=== PATIENT | female | born 1970 | race Caucasian/White ===

== ENCOUNTER 2018-07-30 19:24 | Observation (INO) ==
[2018-07-30] MEDS ORDERED: Ondansetron 4 MG/2 ML VIAL IVP ONE (19:48)
[2018-07-30] MEDS ORDERED: 0.9 % Sodium Chloride 1,000 ML IVC ONE (19:48)
[2018-07-30] MEDS ORDERED: Isovue-370 500 ML BOTTLE IVP ONE (19:48)
[2018-07-30] MEDS ORDERED: methylPREDNISolone 125 MG/2 ML VIAL IVP ONE (19:49)
--- NOTE | 2018-07-30 20:10 | Emergency Department Note ---
Disposition Clinical Impression: Colitis Disposition: Still a Patient Condition: Undetermined Forms: ED Satisfaction Letter, Work/School Release Time of Disposition: 20:36 Abdominal Pain HPI - General Chief Complaint: ED Abdominal Pain Stated Complaint: abd pain GI bleed Time Seen by Provider: 07/30/18 19:40 Source: patient, family Nursing Notes Reviewed: Yes Vital Signs Reviewed: Yes - History of Present Illness HPI Narrative: 48-year-old female presents from home for evaluation of bilateral lower abdomi nal cramping, loose stools, troy red blood in loose stools. History of ulcerative colitis. Symptoms today are identical to her previous flares of ulcerative colitis. This episode began approximately 4 weeks ago. She currently does not have a provider managing her ulcerative colitis and currently takes no daily medications. She was previously prescribed mesalamine however, the cost was prohibitive and she has not filled it. She presented to the emergency department 4 days ago for same symptoms and was discharged home with prescription for oral prednisone. Patient did not take the oral prednisone as it causes psychological reaction of homicidal ideation. Patient was tolerating her pain until this afternoon when he became abruptly worse. She is fine with IV steroids. Patient last colonoscopy was in December performed by Dr. Abbott. ROS: Positive: As above Negative: Fever, chills, nausea, vomiting, chest pains, palpitations, back pain, dysuria Pain Scale: 8 - Related Data Home Medications Medication Instructions Recorded Confirmed Dextroamphetamine/Amphetamine PO DAILY 05/29/17 [Adderall 20 mg Tablet] Bupropion HCl ER 01/30/18 Klonopin 01/30/18 Previous Rx's Medication Instructions Recorded Omeprazole [PriLOSEC] 40 mg PO DAILY #10 cap 12/20/17 Ondansetron ODT [Zofran ODT] 4 mg SL Q8HR PRN #12 tab.rapdis 07/26/18 PredniSONE [Deltasone] 20 mg PO DAILY 10 Days #8 tablet 07/26/18 Allergies Allergy/AdvReac Type Severity Reaction Status Date / Time doxycycline AdvReac Vomiting Verified 07/30/18 19:28 eszopiclone [From Lunesta] AdvReac Nausea Verified 07/30/18 19:28 morphine AdvReac Hives Verified 07/30/18 19:28 Penicillins [PCN] AdvReac Hives Verified 03/11/19 19:28 All systems ED: reviewed and negative except as stated. 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 Bilateral breath sounds are clear without wheezing, crackles, or rhonchi. Cardiovascular: Regular rate and rhythm. No clicks, rubs, gallops, or murmors. Normal heart sounds. Abdomen: Bowel sounds present normoactive. Abdomen is soft, nondistended. Bilateral lower abdominal tenderness. No guarding or rebound. Musculoskeletal: Spontaneously moving all extremities. Skin: warm, dry, intact. Neuro: GCS 15. No focal neurologic deficits observed. Psych: Patient's affect is appropriate for situation. - General Limitations: no limitations General appearance: alert, in no apparent distress Course Course Narrative: Patient signs and symptoms clinically consistent with Crohn's. Given she states this is identical to previous Crohn's flare, will begin empiric management as well as evaluation to ensure alternate pathologies are unlikely. EKG dated 07/30/2018 at 20:07 interpreted as sinus rhythm with rate of 84. Heroin 37, QRS 87, QTC 467. Normal axis. Nonspecific ST-T changes. Compared to previous EKG dated 11/29/2010 show no acute ischemic changes or comparison. Patient has been signed out to Dr. Martinez and Dr. Alvarado. Pending: All laboratory work, CT abdomen pelvis, reassessment after supportive management Recommended disposition: If uncomplicated ulcerative colitis, discharge home with close follow-up. Else, admit. Barriers to disposition: All pending studies as above. Vital Signs Temperature 97.9 F 07/30/18 19:28 Pulse Rate 92 07/30/18 19:28 Respiratory Rate 18 07/30/18 19:28 Blood Pressure 140/88 07/30/18 19:28 O2 Sat by Pulse Oximetry 99 07/30/18 19:28 Temperature 97.9 F 07/30/18 19:28 Pulse Rate 86 07/30/18 20:29 Respiratory Rate 16 07/30/18 20:29 Blood Pressure 128/88 07/30/18 20:29 O2 Sat by Pulse Oximetry 100 07/30/18 20:29 Oxygen Delivery Oxygen Delivery Room Air Abdominal Pain - Lab Data Result diagrams: 07/30/18 20:08 Lab Results 07/30/18 07/30/18 07/30/18 Range/Units 20:02 20:02 20:08 WBC 14.8 H D (4.3-11.1) K/mcL RBC 5.06 H (3.82-4.97) M/mcL Hgb 13.3 (11.5-15.4) g/dL Hct 41.6 (35.3-44.9) % MCV 82.2 L (83.0-100.0) fL MCH 26.3 L (28.0-33.3) pg MCHC 32.0 (31.6-35.5) g/dL RDW 14.1 (11.5-14.5) % Plt Count 317 (140-400) K/mcL MPV 9.1 L (9.4-12.4) fL Immature Gran % 0.2 (0-4) % Seg Neutrophils % 73.7 % Lymphocytes % 15.9 % Monocytes % 8.0 % Eosinophils % 1.6 % Basophils % 0.6 % Neutrophils # 10.9 H (1.6-8.9) K/mcL Lymphocytes # 2.4 (0.6-4.6) K/mcL Monocytes # 1.2 (0.0-1.3) K/mcL Eosinophils # 0.2 (0.0-0.6) K/mcL Basophils # 0.1 (0.0-0.2) K/mcL Urine Color Yellow (Yellow) Urine Clarity Clear (Clear) Urine pH 5.5 (5.0-8.0) pH Units Ur Specific [place] 1.023 (1.010-1.025) Urine Protein Negative (Neg-Trace) mg/dL Urine Glucose (UA) Normal (Normal) mg/dL Urine Ketones Negative (Negative) mg/dL Urine Blood Negative (Negative) Urine Nitrite Negative (Negative) Urine Bilirubin Negative (Negative) Urine Urobilinogen Normal (Normal) mg/dL Ur Leukocyte Esterase Negative (Negative) Ur Culture Indicated? NO (NO) Ur Drug Screen Interp See Below
[2018-07-30 20:26] LABS: Bilirubin,Urine Negative (Negative); Blood,Urine Negative (Negative); Clarity,Urine Clear (Clear); Color,Urine Yellow (Yellow); Glucose,Urine (UA) Normal (Normal); Ketones,Urine Negative (Negative); Leukocyte Esterase,Urine Negative (Negative); Nitrite,Urine Negative (Negative); PH,Urine 5.5 pH Units (5.0-8.0); Protein,Urine Negative (Neg-Trace); Specific Gravity,Urine 1.023 (1.010-1.025); Urobilinogen,Urine Normal (Normal)
[2018-07-30 20:28] LABS: Basophils # 0.1 K/mcL (0.0-0.2); Basophils % 0.6 %; Eosinophils # 0.2 K/mcL (0.0-0.6); Eosinophils % 1.6 %; Hematocrit 41.6 % (35.3-44.9); Hemoglobin 13.3 g/dL (11.5-15.4); Immature Granulocytes % 0.2 % (0-4); Lymphocytes # 2.4 K/mcL (0.6-4.6); Lymphocytes % 15.9 %; Mean Corpuscular Hemoglobin 26.3 pg (28.0-33.3); Mean Corpuscular Volume 82.2 fL (83.0-100.0); Mean Platelet Volume 9.1 fL (9.4-12.4); Monocytes # 1.2 K/mcL (0.0-1.3); Neutrophils # 10.9 K/mcL (1.6-8.9); Platelet Count 317 K/mcL (140-400); Red Blood Count 5.06 M/mcL (3.82-4.97); Red Cell Distribution Width 14.1 % (11.5-14.5); Segmented Neutrophils % 73.7 %
--- NOTE | 2018-07-30 20:29 | Emergency Department Note ---
Disposition Clinical Impression: Colitis Disposition: Still a Patient Condition: Good Forms: ED Satisfaction Letter, Work/School Release General Adult HPI - General Chief complaint: ED Abdominal Pain Stated complaint: abd pain GI bleed Time Seen by Provider: 07/30/18 19:40 Source: patient, family Limitations: no limitations - History of Present Illness Pain Scale: 8 - Related Data Home Medications Medication Instructions Recorded Confirmed Dextroamphetamine/Amphetamine PO DAILY 05/29/17 [Adderall 20 mg Tablet] Bupropion HCl ER 01/30/18 Klonopin 01/30/18 Previous Rx's Medication Instructions Recorded Omeprazole [PriLOSEC] 40 mg PO DAILY #10 cap 12/20/17 Ondansetron ODT [Zofran ODT] 4 mg SL Q8HR PRN #12 tab.rapdis 07/26/18 PredniSONE [Deltasone] 20 mg PO DAILY 10 Days #8 tablet 07/26/18 Allergies Allergy/AdvReac Type Severity Reaction Status Date / Time doxycycline AdvReac Vomiting Verified 07/30/18 19:28 eszopiclone [From Lunesta] AdvReac Nausea Verified 07/30/18 19:28 morphine AdvReac Hives Verified 07/30/18 19:28 Penicillins [PCN] AdvReac Hives Verified 07/30/18 19:28 Past Medical History - Past Medical History Medical history: Reports: no medical history, other Surgical history: Reports: , orthopedic, other Psychiatric history: Reports: anxiety, ADHD, depression 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 - Social History Smoking Status: Never smoker Smokeless Tobacco Status: No Alcohol use: Reports: none Drug use: Reports: none Physical Exam - General Limitations: no limitations General appearance: alert, in no apparent distress Course Vital Signs Temperature 97.9 F 07/30/18 19:28 Pulse Rate 92 07/30/18 19:28 Respiratory Rate 18 07/30/18 19:28 Blood Pressure 140/88 07/30/18 19:28 O2 Sat by Pulse Oximetry 99 07/30/18 19:28 Temperature 97.9 F 07/30/18 19:28 Pulse Rate 92 07/30/18 19:28 Respiratory Rate 18 07/30/18 19:28 Blood Pressure 140/88 07/30/18 19:28 O2 Sat by Pulse Oximetry 99 07/30/18 19:28 Oxygen Delivery Oxygen Delivery Room Air Medical Decision Making - Lab Data Lab Results 07/30/18 Range/Units 20:02 Ur Drug Screen Interp See Below Attestation Statement - Attestation Attestation: I examined this patient and my medical decision-making was reviewed with the Resident Physician. I agree with the documented findings, disposition and treatment plan as described except to the extent set forth below. 48 year old female presents to the Ed with complaints of colitis flare up from UC and was seen here a few days ago and sent home with prednisone after GI conusult. Yasir has missed her last 3 appointments and GI has discharged her from their practice. Yasir states that the sean is lower abodminal with rectal bleeding which is ismliar to her flare ups in the past. No peritoneal signs on exam. Patient will have lab work and ABCT for evaluation. I will sign patiet out Dr. Martinez who will followup on labs and ABCT and dispotiion based on such. Dr. Martinez has accepted the sign out.
--- NOTE | 2018-07-30 20:33 | Emergency Department Note ---
Disposition Clinical Impression: Colitis, Proctocolitis, Ulcerative colitis Disposition: Admitted As Inpatient Condition: Good Forms: ED Satisfaction Letter, Work/School Release General Adult HPI - General Chief complaint: ED Abdominal Pain Stated complaint: abd pain GI bleed Time Seen by Provider: 07/30/18 19:40 Source: patient, family Limitations: no limitations - History of Present Illness Pain Scale: 8 - Related Data Home Medications Medication Instructions Recorded Confirmed Dextroamphetamine/Amphetamine PO DAILY 05/29/17 [Adderall 20 mg Tablet] Bupropion HCl ER 01/30/18 Klonopin 01/30/18 Previous Rx's Medication Instructions Recorded Omeprazole [PriLOSEC] 40 mg PO DAILY #10 cap 12/20/17 Ondansetron ODT [Zofran ODT] 4 mg SL Q8HR PRN #12 tab.rapdis 07/26/18 PredniSONE [Deltasone] 20 mg PO DAILY 10 Days #8 tablet 07/26/18 Allergies Allergy/AdvReac Type Severity Reaction Status Date / Time doxycycline AdvReac Vomiting Verified 07/30/18 19:28 eszopiclone [From Lunesta] AdvReac Nausea Verified 07/30/18 19:28 morphine AdvReac Hives Verified 07/30/18 19:28 Penicillins [PCN] AdvReac Hives Verified 07/30/18 19:28 Past Medical History - Past Medical History Medical history: Reports: no medical history, other Surgical history: Reports: , orthopedic, other Psychiatric history: Reports: anxiety, ADHD, depression 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 - Social History Smoking Status: Never smoker Smokeless Tobacco Status: No Alcohol use: Reports: none Drug use: Reports: none Physical Exam - General Limitations: no limitations General appearance: alert, in no apparent distress Course Vital Signs Temperature 97.9 F 07/30/18 19:28 Pulse Rate 92 07/30/18 19:28 Respiratory Rate 18 07/30/18 19:28 Blood Pressure 140/88 07/30/18 19:28 O2 Sat by Pulse Oximetry 99 07/30/18 19:28 Temperature 97.9 F 07/30/18 19:28 Pulse Rate 93 07/30/18 21:35 Respiratory Rate 18 07/30/18 21:35 Blood Pressure 123/85 07/30/18 21:35 O2 Sat by Pulse Oximetry 99 07/30/18 21:35 Oxygen Delivery Oxygen Delivery Room Air Medical Decision Making - MDM Narrative Medical decision making narrative: Patient was signed out to me by Dr. Ayde Gastelum CT shows evidence of colitis although it is a proctocolitis. ACute on chronic per radiology admit iv levaquin and flagyl ordered - Medical Records Medical records reviewed: Yes I reviewed the patient's medical records. - Lab Data Lab results reviewed: Yes I reviewed the patient's lab results. Result diagrams: 07/30/18 20:08 07/30/18 20:08 Lab Results 07/30/18 07/30/18 07/30/18 Range/Units 20:02 20:02 20:08 WBC 14.8 H D (4.3-11.1) K/mcL RBC 5.06 H (3.82-4.97) M/mcL Hgb 13.3 (11.5-15.4) g/dL Hct 41.6 (35.3-44.9) % MCV 82.2 L (83.0-100.0) fL MCH 26.3 L (28.0-33.3) pg MCHC 32.0 (31.6-35.5) g/dL RDW 14.1 (11.5-14.5) % Plt Count 317 (140-400) K/mcL MPV 9.1 L (9.4-12.4) fL Immature Gran % 0.2 (0-4) % Seg Neutrophils % 73.7 % Lymphocytes % 15.9 % Monocytes % 8.0 % Eosinophils % 1.6 % Basophils % 0.6 % Neutrophils # 10.9 H (1.6-8.9) K/mcL Lymphocytes # 2.4 (0.6-4.6) K/mcL Monocytes # 1.2 (0.0-1.3) K/mcL Eosinophils # 0.2 (0.0-0.6) K/mcL Basophils # 0.1 (0.0-0.2) K/mcL PT (9.4-12.1) Seconds INR APTT (26.0-36.0) Seconds Sodium (136-145) mEq/L Potassium (3.5-5.1) mEq/L Chloride (98-107) mEq/L Carbon Dioxide (23-29) mEq/L BUN (6-20) mg/dL Creatinine (0.60-1.20) mg/dL Est GFR ( Amer) (> 60) Est GFR (Non-Af Amer) (> 60) BUN/Creatinine Ratio (6-26) Glucose (70-105) mg/dL Calculated Osmolality (280-300) Lactic Acid (0.5-2.2) mmol/L Calcium (8.6-10.3) mg/dL Total Bilirubin (0.3-1.0) mg/dL Direct Bilirubin (0.0-0.2) mg/dL Indirect Bilirubin (0.0-1.2) mg/dL AST (13-39) Units/L ALT (7-52) Units/L Alkaline Phosphatase (34-104) Units/L Troponin I (< 0.04) ng/mL Serum Total Protein (6.4-8.9) g/dL Albumin (3.5-5.7) g/dL Globulin (2.4-3.5) g/dL Albumin/Globulin Ratio (1.1-2.2) Lipase (11-82) Units/L Urine Color Yellow (Yellow) Urine Clarity Clear (Clear) Urine pH 5.5 (5.0-8.0) pH Units Ur Specific [place] 1.023 (1.010-1.025) Urine Protein Negative (Neg-Trace) mg/dL Urine Glucose (UA) Normal (Normal) mg/dL Urine Ketones Negative (Negative) mg/dL Urine Blood Negative (Negative) Urine Nitrite Negative (Negative) Urine Bilirubin Negative (Negative) Urine Urobilinogen Normal (Normal) mg/dL Ur Leukocyte Esterase Negative (Negative) Ur Culture Indicated? NO (NO) Urine Opiates Screen Negative (Lsbugq=733) ng/mL Ur Barbiturates Screen Negative (Yqcbec=653) ng/mL Ur Phencyclidine Scrn Negative (Cutoff=25) ng/mL Ur Amphetamines Screen Positive H (Wrioau=7832) ng/mL U Benzodiazepines Scrn Negative (Mwzosv=622) ng/mL Urine Cocaine Screen Negative (Cutoff= 300) ng/mL U Marijuana (THC) Screen Negative (Cutoff = 50) ng/mL Ur Drug Screen Interp See Below 07/30/18 07/30/18 07/30/18 Range/Units 20:08 20:08 20:08 WBC (4.3-11.1) K/mcL RBC (3.82-4.97) M/mcL Hgb (11.5-15.4) g/dL Hct (35.3-44.9) % MCV (83.0-100.0) fL MCH (28.0-33.3) pg MCHC (31.6-35.5) g/dL RDW (11.5-14.5) % Plt Count (140-400) K/mcL MPV (9.4-12.4) fL Immature Gran % (0-4) % Seg Neutrophils % % Lymphocytes % % Monocytes % % Eosinophils % % Basophils % % Neutrophils # (1.6-8.9) K/mcL Lymphocytes # (0.6-4.6) K/mcL Monocytes # (0.0-1.3) K/mcL Eosinophils # (0.0-0.6) K/mcL Basophils # (0.0-0.2) K/mcL PT 11.4 (9.4-12.1) Seconds INR 1.0 APTT 35.0 (26.0-36.0) Seconds Sodium 137 (136-145) mEq/L Potassium 3.8 (3.5-5.1) mEq/L Chloride 104 (98-107) mEq/L Carbon Dioxide 28 (23-29) mEq/L BUN 13 (6-20) mg/dL Creatinine 0.72 (0.60-1.20) mg/dL Est GFR ( Amer) > 60 (> 60) Est GFR (Non-Af Amer) > 60 (> 60) BUN/Creatinine Ratio 18 (6-26) Glucose 100 (70-105) mg/dL Calculated Osmolality 284 (280-300) Lactic Acid 1.0 (0.5-2.2) mmol/L Calcium 9.4 (8.6-10.3) mg/dL Total Bilirubin 0.4 (0.3-1.0) mg/dL Direct Bilirubin 0.1 (0.0-0.2) mg/dL Indirect Bilirubin 0.3 (0.0-1.2) mg/dL AST 14 (13-39) Units/L ALT 10 (7-52) Units/L Alkaline Phosphatase 71 (34-104) Units/L Troponin I < 0.03 (< 0.04) ng/mL Serum Total Protein 7.1 (6.4-8.9) g/dL Albumin 4.1 (3.5-5.7) g/dL Globulin 3.0 (2.4-3.5) g/dL Albumin/Globulin Ratio 1.4 (1.1-2.2) Lipase 15 (11-82) Units/L Urine Color (Yellow) Urine Clarity (Clear) Urine pH (5.0-8.0) pH Units Ur Specific [place] (1.010-1.025) Urine Protein (Neg-Trace) mg/dL Urine Glucose (UA) (Normal) mg/dL Urine Ketones (Negative) mg/dL Urine Blood (Negative) Urine Nitrite (Negative) Urine Bilirubin (Negative) Urine Urobilinogen (Normal) mg/dL Ur Leukocyte Esterase (Negative) Ur Culture Indicated? (NO) Urine Opiates Screen (Ohfasx=736) ng/mL Ur Barbiturates Screen (Kbzmpp=258) ng/mL Ur Phencyclidine Scrn (Cutoff=25) ng/mL Ur Amphetamines Screen (Gweszj=6376) ng/mL U Benzodiazepines Scrn (Wrrleo=905) ng/mL Urine Cocaine Screen (Cutoff= 300) ng/mL U Marijuana (THC) Screen (Cutoff = 50) ng/mL Ur Drug Screen Interp - Radiology Data Radiology results reviewed: Yes I reviewed the patient's radiology results. Attestation Statement - Attestation Attestation: I examined this patient and my medical decision-making was reviewed with the Resident Physician. I agree with the documented findings, disposition and treatment plan as described except to the extent set forth below.
[2018-07-30 20:35] LABS: Prothrombin Time 11.4 Seconds (9.4-12.1)
[2018-07-30 20:37] LABS: Amphetamine Screen,Urine Positive ng/mL (Cutoff=1000); Barbiturate Screen,Urine Negative ng/mL (Cutoff=200); Benzodiazepines Screen,Urine Negative ng/mL (Cutoff=200); Cannabinoid Screen,Urine Negative ng/mL (Cutoff = 50); Cocaine Screen,Urine Negative ng/mL (Cutoff= 300); Opiate Screen,Urine Negative ng/mL (Cutoff=300); Phencyclidine Screen,Urine Negative ng/mL (Cutoff=25)
[2018-07-30 20:50] LABS: Alanine Aminotransferase 10 Units/L (7-52); Albumin 4.1 g/dL (3.5-5.7); Albumin/Globulin Ratio 1.4 (1.1-2.2); Alkaline Phosphatase 71 Units/L (34-104); Aspartate Amino Transferase 14 Units/L (13-39); BUN/Creatinine Ratio 18 (6-26); Bilirubin,Direct 0.1 mg/dL (0.0-0.2); Bilirubin,Indirect 0.3 mg/dL (0.0-1.2); Bilirubin,Total 0.4 mg/dL (0.3-1.0); Blood Urea Nitrogen 13 mg/dL (6-20); Calcium 9.4 mg/dL (8.6-10.3); Carbon Dioxide 28 mEq/L (23-29); Chloride 104 mEq/L (98-107); Glucose 100 mg/dL (70-105); Lipase 15 Units/L (11-82); Osmolality,Calculated 284 (280-300); Potassium 3.8 mEq/L (3.5-5.1); Sodium 137 mEq/L (136-145); Total Protein 7.1 g/dL (6.4-8.9); Troponin I < 0.03 ng/mL (< 0.04); eGFR For Non-African Americans > 60 (> 60)
[2018-07-30] MEDS ORDERED: Levofloxacin 750 MG/150 ML 750 MG/150 ML BAG IVPB ONE (22:31)
[2018-07-30] MEDS ORDERED: MetroNIDAZOLE 500 MG/100 ML 500 MG/100 ML BAG IVPB ONE (22:31)
[2018-07-31] MEDS ORDERED: Ondansetron ODT 4 MG TAB.RAPDIS SL PRN (04:05)
[2018-07-31] MEDS ORDERED: Naloxone 0.4 MG/ML INJ IVP PRN (04:05)
--- NOTE | 2018-07-31 05:13 | Internal Med History&Physical ---
<Michelle Mendez - Last Filed: 07/31/18 05:43> Date of Encounter: 07/31/18 Time of Encounter: 05:08 Internal Medicine - H&P: HPI Chief complaint: Ulcerative colitis flare Admitted From: Home Plans for Post Hospital Care: Home History of present illness: Ms. Alvarez is a 48 year old female presenting with complaint of bilateral lower abdominal cramping, loose stool and bright red blood in stool for the past 4 weeks. She has a past medical history of ulcerative colitis for the past 15 years, anxiety, depression, ADHD for which she is on Adderall. Patient states that she last saw Dr. Abbott in December 2017 for a colonoscopy, since that time she is dismissed 3 further follow-up appointment with GI and was discharged from the practice. She has previously been on mesalamine until the end of April 2018, when the new year began she had a high deductible and has not been able to afford mesalamine since. Patient states that she has between 4 and 15 bowel movements per day and that more often than not she has blood and mucus mixed in with the stool. She states that the abdominal cramping is increasing in severity as well as increased amount of blood in stool for the past 4 weeks, she states that on 07/26/18 she presented to the emergency department and was given a prescription for prednisone for ulcerative colitis flare however she has had behavioral side effects when she takes oral prednisone in the past so she did not fill her prescription. She states that she has decreased by mouth intake during flares, she states that even drinking water or eating hard candies increases the severity of abdominal cramping. She states that she has lost 60 pounds in the past year due to inability to eat when she has abdominal cramping from her ulcerative colitis. She admits to nausea, dizziness, increasing blood in loose stools, and night sweats. She denies any fever, chills, vomiting, vision changes, headache, chest pain, pleuritic chest pain, shortness breath, dysuria, joint pain, weakness, rashes or lesions. Past Med Surg Social Fam HX - Past Medical History Source: patient Medical history: other Additional medical history: ulcerative colitis Psychiatric history: anxiety, ADHD, depression - Past Surgical History Surgical History: , orthopedic, other Additional surgical history: rt acl - Social History Smoking Status: Never smoker Smokeless Tobacco Status: No Alcohol use: none Drug use: none - Family History Mother Age: 71 Living Status: Still Living Hx Family Cardiac Disorders: No Hx Family Respiratory Disorders: Yes (COPD) Hx Family Cancer: No Hx Family GI Disorders: Yes (IBS) Hx Family Genitourinary Disorders: No Hx Family Endocrine Disorder: No Hx Family Musculoskeletal Disorders: No Hx Family Neuromuscular Disorders: No Hx Family Neurologic Disorders: No Hx Family HEENT Disorders: No Hx Family Autoimmune Disorders: No Hx Family Reproductive Disorders: No Hx Family Psychosocial Disorders: No Internal Medicine - H&P: Meds Dextroamphetamine/Amphetamine [Adderall 20 mg Tablet] PO DAILY 05/29/17 [History] Omeprazole [PriLOSEC] 40 mg PO DAILY #10 cap 12/20/17 [Rx] Bupropion HCl ER 01/30/18 [History] Klonopin 0.5 mg HS PRN 01/30/18 [History] Ondansetron ODT [Zofran ODT] 4 mg SL Q8HR PRN #12 tab.rapdis 07/26/18 [Rx] PredniSONE [Deltasone] 20 mg PO DAILY 10 Days #8 tablet 07/26/18 [Rx] Allergy/AdvReac Type Severity Reaction Status Date / Time doxycycline AdvReac Vomiting Verified 07/30/18 19:28 eszopiclone [From Lunesta] AdvReac Nausea Verified 07/30/18 19:28 morphine AdvReac Hives Verified 07/30/18 19:28 Penicillins [PCN] AdvReac Hives Verified 07/30/18 19:28 All Systems PM: A 10-system review of systems was performed and is negative for pertinent findings except as documented above in the HPI. - Constitutional Constitutional: as per HPI, anorexia, excessive sweating, night sweats, weight loss, no fever(s), no falls, no weakness - EENT Eyes: no change in vision Ears: no decreased hearing Nose, mouth and throat: no dysphagia - Cardiovascular Cardiovascular ROS IM: lightheadedness, no chest pain, no dyspnea, no edema, no syncope - Respiratory Respiratory: no dyspnea, no pain with cough - Gastrointestinal Gastrointestinal: abdominal pain, cramping, hematochezia, loose stools, nausea, tenesmus, no vomiting - Genitourinary Genitourinary: hot flashes, no difficulty urinating, no dysuria Menstruation: cycle variable - Musculoskeletal Musculoskeletal ROS IM: no arthralgias, no muscle weakness, no numbness - Integumentary Integumentary IM: no new lesions, no rash - Neurological Neurological ROS: dizziness, no frequent falls, no paresthesias - Psychiatric Psychiatric: anxiety, depression - Endocrine Endocrine IM: excessive sweating - Allergic/Immunologic Allergic/Immunologic: GI upset with certain foods - Constitutional Vitals: Temp Pulse Resp BP Pulse Ox 98 F 90 16 94/56 96 07/31/18 03:30 07/31/18 03:30 07/31/18 03:30 07/31/18 03:30 07/31/18 03:30 Exam: Gen.: Vitals noted. No acute distress. AAOx3, resting comfortably in bed. HEENT: PERRL/EOMI, oropharynx clear, Normocephalic, atraumatic, MMM Neck: Supple. No adenopathy. Trachea midline. Cardiac: RRR, no murmur, +S1/S2, No BLE edema, radial and dorsal pedis pulses 3+ and symmetrical, normal capillary refill. Pulmonary: CTA bilaterally, no wheezes, rales or rhonchi, equal chest expansion, unlabored breathing Abdomen: soft, moderately and diffusely tender to palpation worse in the lower abdominal quadrants and epigastric region, BS noted, no guarding, no palpable HSM Skin: warm and dry, no visible lesions. MSK: ROM intact, no joint swelling noted, gait no assessed while in bed. Non tender calf or clubbing Neuro: A&Ox3, moves all extremities, no focal deficits, sensation intact, CN2-12 grossly intact Psych: Appropriate mood and behavior, AOx3 Internal Med - H&P Results - Labs CBC & Chem 7: 07/30/18 20:08 07/30/18 20:08 Labs: Short CBC 07/30/18 Range/Units 20:08 WBC 14.8 H D (4.3-11.1) K/mcL Hgb 13.3 (11.5-15.4) g/dL Hct 41.6 (35.3-44.9) % Plt Count 317 (140-400) K/mcL Neutrophils # 10.9 H (1.6-8.9) K/mcL BMP 07/30/18 20:08 Sodium 137 Potassium 3.8 Chloride 104 Carbon Dioxide 28 BUN 13 Creatinine 0.72 Glucose 100 Calcium 9.4 Cardiac Enzymes 07/30/18 Range/Units 20:08 Troponin I < 0.03 (< 0.04) ng/mL Liver Function 07/30/18 Range/Units 20:08 Total Bilirubin 0.4 (0.3-1.0) mg/dL Direct Bilirubin 0.1 (0.0-0.2) mg/dL AST 14 (13-39) Units/L ALT 10 (7-52) Units/L Alkaline Phosphatase 71 (34-104) Units/L Albumin 4.1 (3.5-5.7) g/dL Urine 07/30/18 Range/Units 20:02 Urine Color Yellow (Yellow) Urine Clarity Clear (Clear) Urine pH 5.5 (5.0-8.0) pH Units Ur Specific [place] 1.023 (1.010-1.025) Urine Protein Negative (Neg-Trace) mg/dL Urine Glucose (UA) Normal (Normal) mg/dL - Impressions ITS Impressions Abdomen/Pelvis CT 07/30/18 19:48 IMPRESSION: 1. Diffuse rectal and distal sigmoid colon mucosal hyperenhancement with submucosal edema and very luminal stranding noted along with perirectal fibrofatty proliferation. Findings consistent with acute on chronic proctocolitis in keeping with the history of ulcerative colitis. 2. Several scattered small cystic appearing hypodensities in the subendometrial region not optimally assessed on this exam. Cystic changes of adenomyosis possible. Please correlate clinically. If deemed clinically necessary MR imaging may be obtained for further evaluation. D/ / Murtaza Johns MD / Murtaza Johns MD Interpreting Provider: Murtaza Johns MD - Assessment and Plan (1) Ulcerative colitis Current Visit: Yes Status: Acute Assessment and plan: Patient presented with increasing abdominal cramping, with loose stool and increasing amounts of hematochezia for the past 4 weeks History of ulcerative colitis, not currently on mesalamine due to inability to afford medication, previously a patient of Dr. Abbott CT abdomen significant for diffuse rectal and distal sigmoid colon mucosal hyperenhancement with submucosal edema and luminal stranding with perirectal fibrofatty proliferation, consistent with acute on chronic proctocolitis Vital signs stable, afebrile Labs significant for leukocytosis at 14.8 with left shift, hemoglobin within normal limits at 13.3 Coags, LFTs, lipase, lactic acid, U/A all within normal limits Plan GI consult antibiotic coverage with Levaquin and metronidazole Mesalamine 1600 mg 3 times a day Methylprednisolone 20 mg every 8HR Zofran as needed for nausea Nothing by mouth except for ice chips and medications Repeat CBC and BMP pending Qualifiers: Ulcerative colitis location: ulcerative proctitis Digestive disease complication type: with rectal bleeding Qualified Code(s): K51.211 - Ulcera tive (chronic) proctitis with rectal bleeding (2) Colitis Current Visit: Yes Status: Acute Assessment and plan: See management for ulcerative colitis (3) Proctocolitis Current Visit: Yes Status: Acute Assessment and plan: See management for ulcerative colitis (4) ADHD Current Visit: Yes Status: Chronic Assessment and plan: Currently holding home medication of Adderall. UDS positive for amphetamines, suspect secondary to Adderall use Qualifiers: Attention deficit-hyperactivity disorder type: unspecified Qualified Code(s): F90.9 - Attention-deficit hyperactivity disorder, unspecified type (5) Adenomyosis Current Visit: Yes Status: Suspected Assessment and plan: CT abdomen and pelvis revealed several small scattered cystic hypodensities in subendometrial region Suspicion for adenomyosis Suboptimal study, MRI for further evaluation if warranted (6) DVT prophylaxis Current Visit: Yes Status: Acute Assessment and plan: Subcutaneous heparin - Time Spent With Patient Total time spent is greater than 50% in coordination of care (as documented) at patient's floor/unit and/or counseling patient: 25 - 35 minutes <Andre Hays - Last Filed: 07/31/18 06:58> Date of Encounter: 07/31/18 Internal Medicine - H&P: HPI History of present illness: Ms. Alvarez is a 48 year old female All Systems PM: A 10-system review of systems was performed and is negative for pertinent findings except as documented above in the HPI. - Constitutional Vitals: Temp Pulse Resp BP Pulse Ox 98 F 90 16 94/56 96 07/31/18 03:30 07/31/18 03:30 07/31/18 03:30 07/31/18 03:30 07/31/18 03:30 Internal Med - H&P Results - Labs CBC & Chem 7: 07/31/18 05:54 07/31/18 05:54 Labs: Short CBC 07/30/18 07/31/18 Range/Units 20:08 05:54 WBC 14.8 H D 10.6 (4.3-11.1) K/mcL Hgb 13.3 12.2 (11.5-15.4) g/dL Hct 41.6 37.3 (35.3-44.9) % Plt Count 317 296 (140-400) K/mcL Neutrophils # 10.9 H 9.5 H (1.6-8.9) K/mcL BMP 07/30/18 07/31/18 20:08 05:54 Sodium 137 137 Potassium 3.8 4.0 Chloride 104 105 Carbon Dioxide 28 24 BUN 13 9 Creatinine 0.72 0.62 Glucose 100 159 H Calcium 9.4 9.0 Cardiac Enzymes 07/30/18 Range/Units 20:08 Troponin I < 0.03 (< 0.04) ng/mL Liver Function 07/30/18 Range/Units 20:08 Total Bilirubin 0.4 (0.3-1.0) mg/dL Direct Bilirubin 0.1 (0.0-0.2) mg/dL AST 14 (13-39) Units/L ALT 10 (7-52) Units/L Alkaline Phosphatase 71 (34-104) Units/L Albumin 4.1 (3.5-5.7) g/dL Urine 07/30/18 Range/Units 20:02 Urine Color Yellow (Yellow) Urine Clarity Clear (Clear) Urine pH 5.5 (5.0-8.0) pH Units Ur Specific [place] 1.023 (1.010-1.025) Urine Protein Negative (Neg-Trace) mg/dL Urine Glucose (UA) Normal (Normal) mg/dL - Impressions ITS Impressions Abdomen/Pelvis CT 07/30/18 19:48 IMPRESSION: 1. Diffuse rectal and distal sigmoid colon mucosal hyperenhancement with submucosal edema and very luminal stranding noted along with perirectal fibrofatty proliferation. Findings consistent with acute on chronic proctocolitis in keeping with the history of ulcerative colitis. 2. Several scattered small cystic appearing hypodensities in the subendometrial region not optimally assessed on this exam. Cystic changes of adenomyosis possible. Please correlate clinically. If deemed clinically necessary MR imaging may be obtained for further evaluation. D/ / Murtaza Johns MD / Murtaza Johns MD Interpreting Provider: Murtaza Johns MD - Time Spent With Patient Total time spent is greater than 50% in coordination of care (as documented) at patient's floor/unit and/or counseling patient: - Attending Attestation I saw and evaluated the patient. I reviewed the residents note, performed my own physical examination and agree with findings and plan as documented in the residents note. Patient seen and examined on 07/31/18. Patient resting comfortably in the hospital bed, in no a cute distress. Discussed with her plan going forward, including GI consult. Patient's abdominal pain feels more like cramping sensation in the upper part of her abdomen. Her holding Bentyl for now, appreciate GI recommendations for further symptom control.
[2018-07-31] MEDS: *HR* Heparin 5,000 UNIT/ML VIAL SQ SCH ×2 (05:27→17:34)
[2018-07-31 06:12] LABS: Basophils % 0.2 %; Hematocrit 37.3 % (35.3-44.9); Hemoglobin 12.2 g/dL (11.5-15.4); Immature Granulocytes % 0.3 % (0-4); Lymphocytes % 9.1 %; Mean Corpuscular HGB Conc 32.7 g/dL (31.6-35.5); Mean Corpuscular Hemoglobin 26.6 pg (28.0-33.3); Mean Corpuscular Volume 81.4 fL (83.0-100.0); Mean Platelet Volume 9.3 fL (9.4-12.4); Monocytes # 0.1 K/mcL (0.0-1.3); Monocytes % 0.7 %; Neutrophils # 9.5 K/mcL (1.6-8.9); Platelet Count 296 K/mcL (140-400); Red Blood Count 4.58 M/mcL (3.82-4.97); Red Cell Distribution Width 14.1 % (11.5-14.5); Segmented Neutrophils % 89.7 %
[2018-07-31 06:28] LABS: BUN/Creatinine Ratio 15 (6-26); Blood Urea Nitrogen 9 mg/dL (6-20); Carbon Dioxide 24 mEq/L (23-29); Chloride 105 mEq/L (98-107); Glucose 159 mg/dL (70-105); Osmolality,Calculated 286 (280-300); Sodium 137 mEq/L (136-145); eGFR For Non-African Americans > 60 (> 60)
[2018-07-31] MEDS: MethylPREDNISolone 40 MG/ML VIAL IVP SCH ×3 (07:33→23:18)
[2018-07-31] MEDS ORDERED: MetroNIDAZOLE 500 MG/100 ML 500 MG/100 ML BAG IVPB SCH (08:00)
[2018-07-31] MEDS ORDERED: Acetaminophen 325 MG TABLET PO PRN (08:20)
--- NOTE | 2018-07-31 11:13 | Internal Med Progress Note ---
<Pablito Victor - Last Filed: 07/31/18 16:43> Hospitalist Progress Note - Encounter Date of Encounter: 07/31/18 Time of Encounter: 09:00 - Subjective Interval History: Patient complains of continued abdominal bloating and pain this morning. No events reported by nursing. Spoke with GI about consultation. - Exam Vitals: Temp Pulse Resp BP Pulse Ox 97.9 F 68 16 100/64 97 07/31/18 07:13 07/31/18 07:13 07/31/18 07:13 07/31/18 07:13 07/31/18 07:13 Exam: Gen.: Vitals noted. No acute distress. AAOx3, resting comfortably in bed. HEENT: PERRL/EOMI, Normocephalic, atraumatic, MMM Neck: Supple. No adenopathy. Trachea midline. Cardiac: RRR, no murmur, +S1/S2, No BLE edema, radial and dorsal pedis pulses 3+ and symmetrical, normal capillary refill. Pulmonary: CTA bilaterally, no wheezes, rales or rhonchi, equal chest expansion, unlabored breathing Abdomen: Diffuse abdominal tenderness, no acute point tenderness, bowel sounds noted Skin: warm and dry, no visible lesions. MSK: ROM intact, no joint swelling noted, gait no assessed while in bed. Non tender calf or clubbing Neuro: A&Ox3, moves all extremities, no focal deficits, sensation intact, CN2-12 grossly intact Psych: Appropriate mood and behavior, AOx3 - Assessment and Plan (1) Ulcerative colitis Current Visit: Yes Status: Acute Assessment and Plan: Patient presented with 4 weeks hematochezia, diarrhea, abdominal pain She has a known history of UC which she saw GI for and was on mesalamine with good symptom control Her follow up fell through and she stopped taking mesalamine in April On admission she had a mildly elevated white count and imaging evidence of proctocolitis She was admitted and started on mesalamine, methylprednisolone, fluids, NPO, IV levaquin and metronidazole, Zofran GI was consulted for recommendations on further management Patient not septic appearing, white count normal Discontinue antibiotics, continue rest of treatment regimen, await further GI recs (2) Proctocolitis Current Visit: Yes Status: Acute Assessment and Plan: Plan as seen above (3) ADHD Current Visit: Yes Status: Chronic Assessment and Plan: Continue home medication once reconciled (4) Adenomyosis Current Visit: Yes Status: Suspected Assessment and Plan: suspected from abdominal CT, may require further imaging, will likely pursue on outpatient basis (5) DVT prophylaxis Current Visit: Yes Status: Acute Assessment and Plan: subq heparin - Time Spent with Patient Total time spent is greater than 50% in coordination of care (as documented) at patient's floor/unit and/or counseling patient: Internal Medicine: Result - Labs CBC & Chem 7: 07/31/18 05:54 07/31/18 05:54 Labs: Short CBC 07/30/18 07/31/18 Range/Units 20:08 05:54 WBC 14.8 H D 10.6 (4.3-11.1) K/mcL Hgb 13.3 12.2 (11.5-15.4) g/dL Hct 41.6 37.3 (35.3-44.9) % Plt Count 317 296 (140-400) K/mcL Neutrophils # 10.9 H 9.5 H (1.6-8.9) K/mcL BMP 07/30/18 07/31/18 20:08 05:54 Sodium 137 137 Potassium 3.8 4.0 Chloride 104 105 Carbon Dioxide 28 24 BUN 13 9 Creatinine 0.72 0.62 Glucose 100 159 H Calcium 9.4 9.0 Cardiac Enzymes 07/30/18 Range/Units 20:08 Troponin I < 0.03 (< 0.04) ng/mL Liver Function 07/30/18 Range/Units 20:08 Total Bilirubin 0.4 (0.3-1.0) mg/dL Direct Bilirubin 0.1 (0.0-0.2) mg/dL AST 14 (13-39) Units/L ALT 10 (7-52) Units/L Alkaline Phosphatase 71 (34-104) Units/L Albumin 4.1 (3.5-5.7) g/dL Urine 07/30/18 Range/Units 20:02 Urine Color Yellow (Yellow) Urine Clarity Clear (Clear) Urine pH 5.5 (5.0-8.0) pH Units Ur Specific [place] 1.023 (1.010-1.025) Urine Protein Negative (Neg-Trace) mg/dL Urine Glucose (UA) Normal (Normal) mg/dL - ABG Interpretation ABG results: PT/INR, D-dimer PT 11.4 Seconds (9.4-12.1) 07/30/18 20:08 - Impressions Impressions Abdomen/Pelvis CT 07/30/18 19:48 IMPRESSION: 1. Diffuse rectal and distal sigmoid colon mucosal hyperenhancement with submucosal edema and very luminal stranding noted along with perirectal fibrofatty proliferation. Findings consistent with acute on chronic proctocolitis in keeping with the history of ulcerative colitis. 2. Several scattered small cystic appearing hypodensities in the subendometrial region not optimally assessed on this exam. Cystic changes of adenomyosis possible. Please correlate clinically. If deemed clinically necessary MR imaging may be obtained for further evaluation. D/ / Murtaza Johns MD / Murtaza Johns MD Interpreting Provider: Murtaza Johns MD Consult Discharge Plan - Plan Referrals: Yamila Espinal CNP [Primary Care Provider] - 08/08/18 2:00 pm <Cristobal Quezada - Last Filed: 07/31/18 17:59> Hospitalist Progress Note - Encounter Date of Encounter: 07/31/18 Internal Medicine: Result - Labs CBC & Chem 7: 07/31/18 05:54 07/31/18 05:54 Labs: Short CBC 07/30/18 07/31/18 Range/Units 20:08 05:54 WBC 14.8 H D 10.6 (4.3-11.1) K/mcL Hgb 13.3 12.2 (11.5-15.4) g/dL Hct 41.6 37.3 (35.3-44.9) % Plt Count 317 296 (140-400) K/mcL Neutrophils # 10.9 H 9.5 H (1.6-8.9) K/mcL BMP 07/30/18 07/31/18 20:08 05:54 Sodium 137 137 Potassium 3.8 4.0 Chloride 104 105 Carbon Dioxide 28 24 BUN 13 9 Creatinine 0.72 0.62 Glucose 100 159 H Calcium 9.4 9.0 Cardiac Enzymes 07/30/18 Range/Units 20:08 Troponin I < 0.03 (< 0.04) ng/mL Liver Function 07/30/18 Range/Units 20:08 Total Bilirubin 0.4 (0.3-1.0) mg/dL Direct Bilirubin 0.1 (0.0-0.2) mg/dL AST 14 (13-39) Units/L ALT 10 (7-52) Units/L Alkaline Phosphatase 71 (34-104) Units/L Albumin 4.1 (3.5-5.7) g/dL Urine 07/30/18 Range/Units 20:02 Urine Color Yellow (Yellow) Urine Clarity Clear (Clear) Urine pH 5.5 (5.0-8.0) pH Units Ur Specific [place] 1.023 (1.010-1.025) Urine Protein Negative (Neg-Trace) mg/dL Urine Glucose (UA) Normal (Normal) mg/dL - ABG Interpretation ABG results: PT/INR, D-dimer PT 11.4 Seconds (9.4-12.1) 07/30/18 20:08 - Attending Attestation Patient seen and examined independently, including review of objective data including labs. I agree with plan of care as documented above by the resident with the following comments: UC flare w LLQ/LUQ pain as well as blood in stool. Unable to take mesalamine which previously controlled her symptoms due to cost. Giving steroids and mesalamine here, advance diet to clears, discontinue abx, add on CRP/ESR to AM labs, consider steroid enemas if symptoms persist, and wait for further GI rec's. Additional management as above. <Pablito Victor - Last Filed: 07/31/18 16:43> (1) Ulcerative colitis Qualifiers: Ulcerative colitis location: ulcerative proctitis Digestive disease complication type: with rectal bleeding Qualified Code(s): K51.211 - Ulcerative (chronic) proctitis with rectal bleeding (3) ADHD Qualifiers: Attention deficit-hyperactivity disorder type: unspecified Qualified Code(s): F90.9 - Attention-deficit hyperactivity disorder, unspecified type
[2018-07-31] MEDS ORDERED: traMADol 50 MG TABLET PO PRN (13:44)
--- NOTE | 2018-07-31 16:37 | Electrocardiograph Report ---
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
--- NOTE | 2018-07-31 18:31 | Gastroenterology Consult Note ---
<Remi Genao - Last Filed: 07/31/18 18:27> Date of Encounter: 07/31/18 Time of Encounter: 11:30 - Assessment and plan (1) Ulcerative colitis Current Visit: Yes Status: Acute Assessment and plan: Last colonoscopy showed severe ulcerative colitis from rectum up to rectosigmoid junction approximately 25 cm from anal verge. Mesalamine had been controlling symptoms well, but stopped taking it due to cost. Continue oral mesalamine and start mesalamine enemas. Continue steroids. Follow up with Dr. Abbott as outpatient. Qualifiers: Ulcerative colitis location: ulcerative proctitis Digestive disease complication type: with rectal bleeding Qualified Code(s): K51.211 - Ulcerative (chronic) proctitis with rectal bleeding - Time Spent With Patient Total time spent is greater than 50% in coordination of care (as documented) at patient's floor/unit and/or counseling patient: GI History of Present Illness - Data of Consult Patient: known to practice within the last 3 years Consult date: 07/31/18 Requesting Physician: Cristobal Quezada - Consult Narrative Reason for consult: UC flare History of present illness: Ms. Alvarez is a 48 year old female with PMHx of ulcerative colitis, ADHD on Adderall who presented to the ED with worsening lower abdominal cramping, loose stool, and bright red blood in stool for the past 4 weeks. She was recently discharged from our practice for noncompliance after missing 3 follow-up appointments. She has previously been on mesalamine until the end of April 2018, when the new year began she had a high deductible and has not been able to afford mesalamine since. Symptoms were well controlled with mesalamine. She denies fever, chills, chest pain, shortness of breath, nausea, vomiting, melena. Procedures: Colonoscopy 02/14/2018 Dr. Abbott: Severe ulcerative colitis from rectum up to rectosigmoid junction approximately 25 cm from anal verge. NSAIDs: None Anticoagulation: None Past Med Surg Social Fam HX - Past Medical History Medical history: other Additional medical history: ulcerative colitis Psychiatric history: anxiety, ADHD, depression - Past Surgical History Surgical History: , orthopedic, other Additional surgical history: rt acl - Social History Smoking Status: Never smoker Smokeless Tobacco Status: No Alcohol use: none Drug use: none - Family History Mother Age: 71 Living Status: Still Living Hx Family Cardiac Disorders: No Hx Family Respiratory Disorders: Yes (COPD) Hx Family Cancer: No Hx Family GI Disorders: Yes (IBS) Hx Family Genitourinary Disorders: No Hx Family Endocrine Disorder: No Hx Family Musculoskeletal Disorders: No Hx Family Neuromuscular Disorders: No Hx Family Neurologic Disorders: No Hx Family HEENT Disorders: No Hx Family Autoimmune Disorders: No Hx Family Reproductive Disorders: No Hx Family Psychosocial Disorders: No - Gastrointestinal Gastrointestinal: Present: as per HPI - Constitutional Constitutional: as per HPI - EENT Eyes: as per HPI Ears: Present: as per HPI Nose, mouth and throat: Present: as per HPI - Cardiovascular Cardiovascular ROS: Present: as per HPI - Respiratory Respiratory IM: Present: as per HPI - Genitourinary Genitourinary: Absent: change in color, Urinary frequency - Neurological ROS Neurological GI: Present: as per HPI - Hematologic/Lymphatic Hematologic/Lymphatic pediatric: Present: as per HPI - Musculoskeletal Musculoskeletal ROS GI: Present: as per HPI - Integumentary Integumentary GI: Present: as per HPI - Psychiatric ROS Psychiatric GI: Present: as per HPI - Endocrine Endocrine IM: Present: as per HPI - Constitutional Vitals: Temp Pulse Resp BP Pulse Ox 97.9 F 83 16 116/65 98 07/31/18 14:59 07/31/18 14:59 07/31/18 14:59 07/31/18 14:59 07/31/18 14:59 General appearance: Present: cooperative, A&O X 3, no acute distress, answers questions appropriately - Head Head exam: Present: atraumatic, normocephalic - Eye Eye exam: Present: normal appearance, sclera anicteric - ENT ENT exam: Present: mucous membranes moist - Neck Neck exam general surgery: Present: normal inspection, trachea midline - Respiratory Respiratory exam: Present: CTAB. Absent: rales, rhonchi, wheezes - Cardiovascular Cardiovascular exam: Present: RRR, +S1, +S2 - GI/Abdominal GI/Abdominal exam: Present: guarding, soft, tenderness (diffuse tenderness), no peritoneal signs. Absent: distended, firm - Rectal Rectal exam: Present: deferred - Extremities Exam Extremities exam: Present: warm - Neurological Exam Neurological exam: Present: no focal deficits - Psychiatric Psychiatric exam: Present: normal affect, normal mood - Skin Skin exam: Present: dry, intact, normal color, warm Results - Labs CBC & Chem 7: 07/31/18 05:54 07/31/18 05:54 Labs: Last Result Calcium 9.0 mg/dL (8.6-10.3) 07/31/18 05:54 Troponin I < 0.03 ng/mL (< 0.04) 07/30/18 20:08 Urine Opiates Screen Negative ng/mL (Blpaic=641) 07/30/18 20:02 Entire Visit Hgb 12.2 g/dL (11.5-15.4) 07/31/18 05:54 Hct 37.3 % (35.3-44.9) 07/31/18 05:54 PT 11.4 Seconds (9.4-12.1) 07/30/18 20:08 Total Bilirubin 0.4 mg/dL (0.3-1.0) 07/30/18 20:08 AST 14 Units/L (13-39) 07/30/18 20:08 ALT 10 Units/L (7-52) 07/30/18 20:08 Lipase 15 Units/L (11-82) 07/30/18 20:08 - ABG ABG results: PT/INR, D-dimer PT 11.4 Seconds (9.4-12.1) 07/30/18 20:08 - Impressions Impressions Abdomen/Pelvis CT 07/30/18 19:48 IMPRESSION: 1. Diffuse rectal and distal sigmoid colon mucosal hyperenhancement with submucosal edema and very luminal stranding noted along with perirectal fibrofatty proliferation. Findings consistent with acute on chronic proctocolitis in keeping with the history of ulcerative colitis. 2. Several scattered small cystic appearing hypodensities in the subendometrial region not optimally assessed on this exam. Cystic changes of adenomyosis possible. Please correlate clinically. If deemed clinically necessary MR imaging may be obtained for further evaluation. D/ / Murtaza Johns MD / Murtaza Johns MD Interpreting Provider: Murtaza Johns MD Consult Discharge Plan - Plan Referrals: Yamila Espinal CNP [Primary Care Provider] - 08/08/18 2:00 pm <Gul,Adrian - Last Filed: 07/31/18 20:28> Date of Encounter: 07/31/18 Time of Encounter: 14:00 - Time Spent With Patient Total time spent is greater than 50% in coordination of care (as documented) at patient's floor/unit and/or counseling patient: GI History of Present Illness - Data of Consult Requesting Physician: Cristobal Quezada - Consult Narrative History of present illness: Ms. Alvarez is a 48 year old female - Constitutional Vitals: Temp Pulse Resp BP Pulse Ox 98.6 F 94 16 115/72 99 07/31/18 18:53 07/31/18 18:53 07/31/18 18:53 07/31/18 18:53 07/31/18 18:53 Results - Labs CBC & Chem 7: 07/31/18 05:54 07/31/18 05:54 Labs: Last Result ESR 27 mm/hr (0-15) H 07/31/18 18:20 Calcium 9.0 mg/dL (8.6-10.3) 07/31/18 05:54 Troponin I < 0.03 ng/mL (< 0.04) 07/30/18 20:08 C-Reactive Protein 25 mg/L (Less than 10) H 07/31/18 18:20 Urine Opiates Screen Negative ng/mL (Nosnao=124) 07/30/18 20:02 Entire Visit Hgb 12.2 g/dL (11.5-15.4) 07/31/18 05:54 Hct 37.3 % (35.3-44.9) 07/31/18 05:54 PT 11.4 Seconds (9.4-12.1) 07/30/18 20:08 Total Bilirubin 0.4 mg/dL (0.3-1.0) 07/30/18 20:08 AST 14 Units/L (13-39) 07/30/18 20:08 ALT 10 Units/L (7-52) 07/30/18 20:08 Lipase 15 Units/L (11-82) 07/30/18 20:08 - ABG ABG results: PT/INR, D-dimer PT 11.4 Seconds (9.4-12.1) 07/30/18 20:08 - Impressions Impressions Abdomen/Pelvis CT 07/30/18 19:48 IMPRESSION: 1. Diffuse rectal and distal sigmoid colon mucosal hyperenhancement with submucosal edema and very luminal stranding noted along with perirectal fibrofatty proliferation. Findings consistent with acute on chronic proctocolitis in keeping with the history of ulcerative colitis. 2. Several scattered small cystic appearing hypodensities in the subendometrial region not optimally assessed on this exam. Cystic changes of adenomyosis possible. Please correlate clinically. If deemed clinically necessary MR imaging may be obtained for further evaluation. D/ / Murtaza Johns MD / Murtaza Johns MD Interpreting Provider: Murtaza Johns MD - Attending Attestation I have personally performed a face to face evaluation on this patient. I have reviewed and agree with the care plan. History and Exam by me shows: Pt seen, admitted with UC flare.O/e AAo, abd soft . A: Pt with UC now with flare due to out of meds. Rec PO mesalamine and alos enema. F/u Gi out pt
[2018-07-31] MEDS ORDERED: Acetaminophen/Butalbital/CaffeineTABLET PO ONE (20:13)
[2018-07-31] MEDS: valACYclovir 500 MG TABLET PO SCH (20:33)
[2018-07-31] MEDS ORDERED: clonazePAM 0.5 MG TABLET PO PRN (20:53)
[2018-08-01] MEDS: *HR* Heparin 5,000 UNIT/ML VIAL SQ SCH (06:26)
[2018-08-01 06:50] LABS: Basophils % 0.1 %; Hemoglobin 11.3 g/dL (11.5-15.4); Immature Granulocytes % 0.4 % (0-4); Lymphocytes # 1.6 K/mcL (0.6-4.6); Lymphocytes % 12.9 %; Mean Corpuscular HGB Conc 32.3 g/dL (31.6-35.5); Mean Corpuscular Hemoglobin 26.6 pg (28.0-33.3); Mean Corpuscular Volume 82.4 fL (83.0-100.0); Mean Platelet Volume 9.8 fL (9.4-12.4); Monocytes # 0.6 K/mcL (0.0-1.3); Monocytes % 4.7 %; Neutrophils # 9.9 K/mcL (1.6-8.9); Platelet Count 283 K/mcL (140-400); Red Blood Count 4.25 M/mcL (3.82-4.97); Red Cell Distribution Width 14.4 % (11.5-14.5); Segmented Neutrophils % 81.9 %
[2018-08-01 07:12] LABS: BUN/Creatinine Ratio 12 (6-26); Blood Urea Nitrogen 8 mg/dL (6-20); Calcium 8.8 mg/dL (8.6-10.3); Carbon Dioxide 25 mEq/L (23-29); Chloride 109 mEq/L (98-107); Glucose 133 mg/dL (70-105); Osmolality,Calculated 290 (280-300); Potassium 3.8 mEq/L (3.5-5.1); Sodium 140 mEq/L (136-145); eGFR For Non-African Americans > 60 (> 60)
[2018-08-01] MEDS: MethylPREDNISolone 40 MG/ML VIAL IVP SCH (08:48)
[2018-08-01] MEDS: valACYclovir 500 MG TABLET PO SCH (08:48)
[2018-08-01] MEDS ORDERED: Levofloxacin 750 MG/150 ML 750 MG/150 ML BAG IVPB SCH (09:00)
--- NOTE | 2018-08-01 10:10 | Discharge Summary ---
<Pablito Victor Socrates - Last Filed: 08/01/18 13:30> - NOTES TO OUTPATIENT PROVIDER Notes to Outpatient Provider: Ms Alvarez presented for abdominal pain and hematochezia, imaging/ lab work revealed proctocolitis secondary to ulcerative colitis flare. She has a known history of UC which has been successfully treated with mesalamine in the past and was successfully treated with mesalamine here. She recently stopped her mesalamine for financial reasons. We will resume it at discharge, she has outpatient GI follow up scheduled. Patient also had incidental finding of possible adenomyosis, may require further imaging/clinical correlation. Patient also slightly anemic, likely dilutional secondary to hydration, however may warrant follow up repeat CBC. Orders not resulted at time of discharge: Pending orders 07/30/18 22:56 Red Blood Cells [BBK] Stat Type and Screen [BBK] Stat 08/02/18 04:00 Basic Metabolic Panel AM 0400 Complete Blood Count [HEME] AM 0400 08/03/18 04:00 Basic Metabolic Panel AM 0400 Complete Blood Count [HEME] AM 0400 Date of Encounter: 08/01/18 Time of Encounter: 10:04 - Discharge Diagnosis (1) Ulcerative colitis Priority: Primary Status: Acute Assessment and Plan: Ulcerative colitis flare successfully treated with Oral and Rectal Mesalamine, Fluids, Methylprednisolone Will be discharged in stable condition on oral and rectal mesalamine with outpatient GI Follow up Qualifiers: Ulcerative colitis location: ulcerative proctitis Digestive disease complication type: with rectal bleeding Qualified Code(s): K51.211 - Ulcerative (chronic) proctitis with rectal bleeding (2) Proctocolitis Priority: Secondary Status: Acute Assessment and Plan: Secondary to UC, non infectious, plan as above (3) ADHD Priority: Secondary Status: Chronic Assessment and Plan: Continue home medication on discharge Qualifiers: Attention deficit-hyperactivity disorder type: unspecified Qualified Code(s): F90.9 - Attention-deficit hyperactivity disorder, unspecified type (4) DVT prophylaxis Priority: Secondary Status: Acute Assessment and Plan: subq heparin (5) Adenomyosis Priority: Secondary Status: Suspected Assessment and Plan: suspected from abdominal CT, may require further imaging, will follow up with PCP Hospital course: Ms. Alvarez is a 48 year old female with a past medical history of ulcerative colitis for the past 15 years, anxiety, depression, ADHD for which she is on Adderall. She presented for bilateral lower abdominal cramping, loose stool and bright red blood in stool for the past 4 weeks. She previously saw GI for her UC and was well controlled on mesalamine but was discharged for no shows. After that she stopped her mesalamine in May for financial reasons. She was worked up here and was found to have proctocolitis secondary to ulcerative colitis flare. She was admitted and started on mesalamine and methylprednisolone with GI consult. GI recommended continued mesalamine and steroids and outpatient follow up. She recovered clinically and was considered stable for discharge on oral and rectal mesalamine with outpatient GI follow up. Discharge discussed with: patient - Time Spent with Patient Total time spent providing and/or coordinating discharge services: - Discharge Medications Prescriptions: New Mesalamine [Delzicol] 1,600 mg PO TIDAC capsule. Mesalamine [Jeromy] 4 gm RC HS 30 Days #1800 mls Continue clonazePAM [Clonazepam] 0.5 mg PO HS PRN PRN Reason: ANXIETY/SLEEP Ondansetron ODT [Zofran ODT] 4 mg SL Q8HR PRN #12 tab.rapdis PRN Reason: Nausea Dextroamphetamine/Amphetamine [Adderall Xr 15 mg Capsule] 15 mg PO QPM Dextroamphetamine/Amphetamine [Adderall Xr 20 mg Capsule] 20 mg PO QAM Multivitamin/Folic Acid/Biotin [Hair, Skin and Nails Tablet] 2 tab PO DAILY Aspirin/Acetaminophen/Caffeine [Excedrin Migraine Caplet] 2 tab PO DAILY PRN PRN Reason: Headache Ibuprofen [Ibu-200] 800 mg PO DAILY PRN PRN Reason: Headache Discontinued PredniSONE [Deltasone] 20 mg PO DAILY 10 Days #8 tablet Home Medications: clonazePAM [Clonazepam] 0.5 mg PO HS PRN 01/30/18 [History] Ondansetron ODT [Zofran ODT] 4 mg SL Q8HR PRN #12 tab.rapdis 07/26/18 [Rx] Aspirin/Acetaminophen/Caffeine [Excedrin Migraine Caplet] 2 tab PO DAILY PRN 07/31/18 [History] Dextroamphetamine/Amphetamine [Adderall Xr 15 mg Capsule] 15 mg PO QPM 07/31/18 [History] Dextroamphetamine/Amphetamine [Adderall Xr 20 mg Capsule] 20 mg PO QAM 07/31/18 [History] Ibuprofen [Ibu-200] 800 mg PO DAILY PRN 07/31/18 [History] Multivitamin/Folic Acid/Biotin [Hair, Skin and Nails Tablet] 2 tab PO DAILY 07/31/18 [History] Mesalamine [Delzicol] 1,600 mg PO TIDAC capsule. 08/01/18 [Rx] Mesalamine [Rowasa] 4 gm RC HS 30 Days #1800 mls 08/01/18 [Rx] Allergies/Adverse Reactions: Allergy/AdvReac Type Severity Reaction Status Date / Time doxycycline AdvReac Vomiting Verified 07/31/18 16:56 eszopiclone [From Lunesta] AdvReac Nausea Verified 07/30/18 19:28 morphine AdvReac Anaphylaxis Verified 07/31/18 16:56 Penicillins [PCN] AdvReac Hives Verified 07/31/18 16:56 Date of admission: 07/30/18 22:56 Primary care physician: Yamila Espinal CNP Consults: 07/31/18 04:56 Consult to Gastroenterology [CONS] Routine Consulting Provider: [facility] [place] Reason for Consult: ulcerative colitis flare Call Completed: No Discharging clinician: Pablito Victor Anticipated date of discharge: 08/01/18 - Constitutional Vitals: Temp Pulse Resp BP Pulse Ox 98.1 F 63 16 103/67 97 08/01/18 07:32 08/01/18 07:32 08/01/18 07:32 08/01/18 07:32 08/01/18 07:32 Exam: Gen.: Vitals noted. No acute distress. AAOx3, resting comfortably in bed. HEENT: PERRL/EOMI, Normocephalic, atraumatic, MMM Neck: Supple. No adenopathy. Trachea midline. Cardiac: RRR, no murmur, +S1/S2, No BLE edema, radial and dorsal pedis pulses 3+ and symmetrical, normal capillary refill. Pulmonary: CTA bilaterally, no wheezes, rales or rhonchi, equal chest expansion, unlabored breathing Abdomen: No abdominal tenderness, no acute point tenderness, bowel sounds noted Skin: warm and dry, no visible lesions. MSK: ROM intact, no joint swelling noted, gait no assessed while in bed. Non tender calf or clubbing Neuro: A&Ox3, moves all extremities, no focal deficits, sensation intact, CN2-12 grossly intact Psych: Appropriate mood and behavior, AOx3 - Patient Status Disposition: Home, Self-Care Condition: Good Functional capacity at discharge: independent ambulation Overall status at discharge: patient is back to baseline - Discharge Instructions Instructions: Mesalamine (Rectal), Mesalamine (By mouth) Follow Up With: Yamila Espinal CNP [Primary Care Provider] - 08/08/18 2:00 pm Adrian Abbott MD [Partnered Physician] - (Appointment has been requested. ) - Diet and Activity Activity: resume usual activities as tolerated Diet: advance to your usual diet <Hayley Devine - Last Filed: 08/01/18 23:03> Orders not resulted at time of discharge: Pending orders 07/30/18 22:56 Red Blood Cells [BBK] Stat Type and Screen [BBK] Stat Date of Encounter: 08/01/18 - Discharge Diagnosis (1) Proctocolitis Status: Acute (2) Ulcerative colitis Status: Acute Qualifiers: Ulcerative colitis location: ulcerative proctitis Digestive disease complication type: with rectal bleeding Qualified Code(s): K51.211 - Ulcerative (chronic) proctitis with rectal bleeding (3) DVT prophylaxis Status: Acute (4) ADHD Status: Chronic Qualifiers: Attention deficit-hyperactivity disorder type: unspecified Qualified Code(s): F90.9 - Attention-deficit hyperactivity disorder, unspecified type (5) Adenomyosis Status: Suspected Hospital course: Ms. Alvarez is a 48 year old female - Time Spent with Patient Total time spent providing and/or coordinating discharge services: Date of admission: 07/30/18 22:56 Primary care physician: Yamila Espinal CNP Consults: 07/31/18 04:56 Consult to Gastroenterology [CONS] Routine Consulting Provider: [facility] [place] Reason for Consult: ulcerative colitis flare Call Completed: No - Constitutional Vitals: Temp Pulse Resp BP Pulse Ox 98.1 F 65 16 121/81 97 08/01/18 11:47 08/01/18 11:47 08/01/18 11:47 08/01/18 11:47 08/01/18 11:47 - Attending Attestation I examined this patient and my medical decision-making was reviewed with the Resident Physician. I agree with the documented findings, disposition and treatment plan as described except to the extent set forth below.
[2018-08-01 11:48] VITALS: BP 121/81
== END 2018-08-01 14:10 | disposition home or self-care (01) ==
LOC: EMEROOARM 19:24 → 3BNU 19:24 → SUATTDRO 22:56 → 3BNU 23:30
PROVIDERS: ADMIT Pediatrics; ATTEND Internal Medicine